=== PATIENT | female | born 1960 | race Caucasian/White ===

== ENCOUNTER 2016-12-17 07:44 | Inpatient (IN) | payer OTHER ==
[~2016-12-17 07:44] MED LIST: FENOFIBRATE145 M2 PO; WELLBUTRIN XL150 M1 PO; ZIAC 2.5-6.251 EACH PO; [UNRECOGNIZED DRUG - OTHER] PO; [UNRECOGNIZED DRUG - OTHER] PO
[2016-12-17 09:16] LABS: ANION GAP 13 mmol/L (0-20); BLOOD UREA NITROGEN 19 mg/dl (6-24); CALCIUM 9.3 mg/dl (8.5-10.5); CARBON DIOXIDE-VENOUS 25 mmol/L (22-32); CHLORIDE 108 mmol/l (96-110); CREATININE 1.14 mg/dl (0.50-1.10); GLUCOSE 121 mg/dL (70-110); POTASSIUM 4.3 mmol/L (3.7-5.1); SODIUM 142 mmol/L (135-145); eGFR VALUE FOR BLACK 61 mL/Min
[2016-12-18 06:31] LABS: ANION GAP 10 mmol/L (0-20); BLOOD UREA NITROGEN 16 mg/dl (6-24); CALCIUM 8.1 mg/dl (8.5-10.5); CARBON DIOXIDE-VENOUS 27 mmol/L (22-32); CHLORIDE 108 mmol/l (96-110); CREATININE 1.02 mg/dl (0.50-1.10); GLUCOSE 110 mg/dL (70-110); SODIUM 141 mmol/L (135-145); eGFR VALUE FOR BLACK 70 mL/Min
[2016-12-18 06:35] LABS: BASO % 0.2 % (0-2); EOS % 0.9 % (0-7); EOSINOPHIL ABSOLUTE COUNT 0.1 tho/cmm (0.0-0.7); HCT-HEMATOCRIT 34.3 % (34.0-49.0); IMMATURE GRANULOCYTES ABSOLUTE 0.01 tho/cmm (0-0.03); IMMATURE GRANULOCYTES PERCENT 0.2 % (0-0.3); LYMPH ABSOLUTE COUNT 0.7 tho/cmm (0.8-4.5); MCH (MEAN CORPUSCULAR HGB) 32.1 pg (28.0-32.0); MCHC MEAN CORPUSCULAR HGB CONC 32.1 % (32.0-36.0); MEAN PLATELET VOLUME 10.4 cmc (9.4-12.4); MONO % 9.9 % (0-12); MONOCYTE ABSOLUTE COUNT 0.7 tho/cmm (0.0-1.2); NEUTROPHIL ABSOLUTE COUNT 5.2 tho/cmm (1.6-8.0); NEUTROPHIL-AUTOMATED 5.2 tho/cmm (1.6-8.0); NEUTROPHILS % 78.8 % (40-80); PLATELET COUNT 236 tho/cmm (150-450); RED BLOOD COUNT 3.43 mil/cmm (4.00-5.20); RED CELL DISTRIBUTION WIDTH 13.2 % (12.4-16.4); WHITE BLOOD COUNT 6.6 tho/cmm (4.0-10.0)
--- NOTE | 2016-12-18 20:10 | NUR ---
VIRTUAL CARE NOTE: PT. IN BED, IS SORE, BUT [place] IS HELPING. HAS WALKED A COUPLE OF TIMES AND IS TOLERATING SOME LIQUIDS. HASN'T BEEN SHOWN OSTOMY CARES, ENCOURAGED PT. TO WATCH STAFF DO CARES WHEN SHE STARTS PASSING FLATUS AND STOOLS, AND ALSO AN OSTOMY SHOULD ALSO ROUND AT SOME POINT FOR FURTHER EDUCATON. HAS A RASH ON HER RIGHT HAND, THAT DOESN'T ITCH. UNABLE TO VIEW FROM THE CAMERA, EDUCATED WE WILL CONTINUE TO MONITOR. HAS WALKED X2 TODAY. ENCOURAGED TO AMBULATE AT LEAST 3-4 TIMES TO PREVENT PNEUMNONIA, BLOOD CLOTS AND HELP WITH GI MOTILITY. AIDE THEN IN ROOM AND ASKED TO HELP AMBULATE PT. ONE MORE TIME TONIGHT WHEN ABLE. INSTRUCTIONS GIVEN TO THE PT. IF SHE NEEDED ANYTHING ELSE TO PUSH HER CALL LIGHT. STATES VERBAL AGREEMENT.
--- NOTE | 2016-12-19 15:15 | NUR ---
VIRTUAL CARE NOTE: PT AWAKE RESTING IN BED. [place] WAS DCD TODAY, PT DENIES DIFFICULTY VOIDING. PT'S DIET ADVANCED TO LOW RESIDUE, DENIES N/V/D. CENTRAL SERVICES TECH DCD, PT STATES PAIN 6/10 RX GIVEN ~1500, REVIEWED PAIN RX ORDER AND DISCUSSED W/ PT. PT VERBALIZES UNDERSTANDING AND UNDERSTANDS TO CALL FOR RX. PT DENIES QUESTIONS/CONCERNS AT THIS TIME.
[2016-12-21] MEDS ORDERED: NORCO 5-325 TA1 EACH PO (10:00)
[2016-12-21] MEDS ORDERED: COLACE100 M1 PO (10:11)
== END 2016-12-21 13:10 | DRG 343 ==
LOC: SHSC 07:44 → ORW 11:54 → PACU 15:50 → 5WD 17:00
PROVIDERS: ADMIT Surgery
PROC: 0WHR8YZ Insertion of Other Device into Genitourinary Tract, Via Natural or Artificial Opening Endoscopic (ICD-10-PCS; principal; 2016-12-17)
PROC: 0DTJ4ZZ Resection of Appendix, Percutaneous Endoscopic Approach (ICD-10-PCS; 2016-12-17)
PROC: 0DTQ4ZZ Resection of Anus, Percutaneous Endoscopic Approach (ICD-10-PCS; 2016-12-17)
PROC: 0T788DZ Dilation of Bilateral Ureters with Intraluminal Device, Via Natural or Artificial Opening Endoscopic (ICD-10-PCS; 2016-12-17)
DX: C20 Malignant neoplasm of rectum (principal); I10 Essential (primary) hypertension; K66.0 Peritoneal adhesions (postprocedural) (postinfection); E78.1 Pure hyperglyceridemia; Z87.891 Personal history of nicotine dependence
CPT/HCPCS: C1729; C1769; C9290; G0463; J0131; J1170; J1335; J1650; J7030; J7050